=== PATIENT | male | born 1960 | race African-American/Black ===

== ENCOUNTER 2017-09-27 08:10 | Emergency (ER) | payer BC, OTHER ==
[~2017-09-27] VITALS: Ht 188 cm; Wt 115.2 kg
[~2017-09-27 08:10] MED LIST: NAPROSYN500 MG PO; NOHOMEMEDICATIONS; ULTRAM 50MG TAB50 MG PO
[2017-09-27] MEDS ORDERED: PREDNISONE 20 M20 MG PO ×2 (09:04→09:07)
[2017-09-27] MEDS ORDERED: NORCO 10-325 T1 EACH PO ×2 (09:04→09:07)
[2017-09-27] MEDS ORDERED: CYCLOBENZAPRINE5 MG PO ×2 (09:04→09:07)
== END 2017-09-27 09:19 | disposition home or self-care (01) ==
LOC: ER 08:10
DX: M51.26 Other intervertebral disc displacement, lumbar region (principal)

== ENCOUNTER 2018-01-25 02:19 | Emergency (ER) | payer OTHER ==
[~2018-01-25] VITALS: Ht 188 cm; Wt 115.2 kg
[~2018-01-25 02:19] MED LIST changes: +CYCLOBENZAPRINE5 MG PO; +NORCO 10-325 T1 EACH PO; +PREDNISONE 20 M20 MG PO
[2018-01-25 02:29] LABS: URINE BILIRUBIN NEGATIVE (Negative); URINE BLOOD NEGATIVE (Negative); URINE CLARITY CLEAR; URINE COLOR YELLOW; URINE GLUCOSE-RANDOM* NEGATIVE (Negative); URINE KETONES NEGATIVE (Negative); URINE LEUKOCYTES NEGATIVE (Negative); URINE NITRITE NEGATIVE (Negative); URINE PROTEIN (DIPSTICK) NEGATIVE (Negative); URINE SPECIFIC GRAVITY 1.025 (1.005-1.035); URINE UROBILINOGEN 0.2 E.U./dl (0.2-1.0)
[2018-01-25 05:30] VITALS: BP 144/96
[2018-01-25] MEDS ORDERED: NORCO 5-325 TA1 EACH PO (05:33)
[2018-01-25] MEDS ORDERED: DOXYCYCLINE 10100 MG PO (05:33)
== END 2018-01-25 05:50 | disposition home or self-care (01) ==
LOC: ER 02:19
PROVIDERS: Emergency Medicine
DX: N45.1 Epididymitis (principal); N43.40 Spermatocele of epididymis, unspecified

== ENCOUNTER 2018-07-18 19:28 | Emergency (ER) | payer OTHER ==
[~2018-07-18] VITALS: Ht 188 cm; Wt 117.0 kg
[~2018-07-18 19:28] MED LIST changes: +DOXYCYCLINE 10100 MG PO; +NORCO 5-325 TA1 EACH PO
[2018-07-18] MEDS ORDERED: IBUPROFEN 400400 M2 PO (19:55)
[2018-07-18] MEDS ORDERED: FLEXERIL PO (19:55)
[2018-07-18 20:24] VITALS: BP 134/74
== END 2018-07-18 20:25 | disposition home or self-care (01) ==
LOC: ER 19:28
DX: M54.5 Low back pain (principal)

== ENCOUNTER 2020-03-28 15:15 | Emergency (ER) | payer OTHER ==
[~2020-03-28] VITALS: Ht 185.4 cm; Wt 112.5 kg
[~2020-03-28 15:15] MED LIST changes: +FLEXERIL PO; +IBUPROFEN 400400 M2 PO
[2020-03-28 15:33] VITALS: BP 176/96
[2020-03-28 15:49] LABS: URINE BILIRUBIN NEGATIVE (Negative); URINE BLOOD TRACE (Negative); URINE CLARITY CLEAR; URINE COLOR YELLOW; URINE GLUCOSE-RANDOM* NEGATIVE (Negative); URINE KETONES NEGATIVE (Negative); URINE NITRITE-REFLEX NEGATIVE (Negative); URINE PROTEIN (DIPSTICK) NEGATIVE (Negative); URINE SPECIFIC GRAVITY 1.025 (1.005-1.035); URINE UROBILINOGEN 0.2 E.U./dl (0.2-1.0)
[2020-03-28 15:50] LABS: URINE LEUKOCYTES-REFLEX 3+ (Negative)
[2020-03-28 15:59] LABS: BACTERIA-REFLEX 1-9 Few /HPF (None Seen); CASTS None Seen /LPF (None Seen); CRYSTALS None Seen /LPF (None Seen); SQUAMOUS None Seen /LPF (0-3); URINE RBC 0-2 Rare /HPF (0-2); URINE WBC-REFLEX >25 Many /HPF (0-5)
== END 2020-03-28 18:08 | disposition home or self-care (01) ==
LOC: ER 15:15
PROVIDERS: Emergency Medicine
DX: Z11.3 Encounter for screening for infections with a predominantly sexual mode of transmission (principal); R36.9 Urethral discharge, unspecified; R30.9 Painful micturition, unspecified; Z79.899 Other long term (current) drug therapy; Z98.890 Other specified postprocedural states